=== PATIENT | female | born 1985 | race Caucasian/White ===

== ENCOUNTER 2016-03-24 09:02 | Emergency (ER) | payer OTHER ==
[~2016-03-24] VITALS: Ht 162.6 cm; Wt 50.0 kg
[~2016-03-24 09:02] MED LIST: CIPRO500 MG PO; NO HOME MEDS; NOHOMEMEDS; PYRIDIUM100 MG PO
[2016-03-24 10:04] LABS: CHLORIDE 109 mEq/L (99-109); POTASSIUM 3.9 mEq/L (3.7-5.4); SODIUM 141 mEq/L (136-147)
[2016-03-24 10:06] LABS: GLUCOSE 84 mg/dL (70-99)
[2016-03-24 10:07] LABS: ANION GAP 12 MEQ/L (2-14)
[2016-03-24 10:09] LABS: GFR ESTIMATE (CALCULATED) > 59 mL/min/
[2016-03-24 10:10] LABS: UREA NITROGEN (BUN) 16 mg/dL (9-23)
[2016-03-24 10:21] LABS: QUANTITATIVE HCG < 4.0 MIU/ML
[2016-03-24] MEDS ORDERED: MOTRIN600 MG PO (12:36)
[2016-03-24 12:46] VITALS: BP 110/74
== END 2016-03-24 12:47 | disposition home or self-care (01) ==
LOC: EME 09:02
PROVIDERS: Physician Assistant
DX: S16.1XXA Strain of muscle, fascia and tendon at neck level, initial encounter (principal); V49.40XA Driver injured in collision with unspecified motor vehicles in traffic accident, initial encounter; W22.11XA Striking against or struck by driver side automobile airbag, initial encounter; Y92.410 Unspecified street and highway as the place of occurrence of the external cause; F17.200 Nicotine dependence, unspecified, uncomplicated; Z88.0 Allergy status to penicillin
CPT/HCPCS: 80048; 84702; 93005; 99281; 99284; J7030